=== PATIENT | male | born 1970 | race Caucasian/White ===

== ENCOUNTER 2016-06-13 18:33 | Emergency (ER) | payer MEDICAID ==
[2016-06-13 20:39] LABS: BASOPHILS 0.7 % (0.0-2.0); HEMATOCRIT 43.9 % (42.0-54.0); HEMOGLOBIN 14.5 g/dL (13.5-17.5); IMMATURE GRANULOCYTES 0.1 % (0-5); LYMPHOCYTES 32.9 % (15-50); MCV 90.9 fL (80.0-100.0); MEAN PLATELET VOLUME 9.2 fL (7.4-10.4); MONOCYTES 8.8 % (2-11); NEUTROPHILS 54.5 % (40-80); PLATELET COUNT 256 10x3/uL (130-400); RBC 4.83 10x6/uL (4.20-6.10); RDW 13.7 % (11.5-14.5); WBC 8.4 10x3/uL (4.8-10.8)
[2016-06-13 20:54] LABS: ANION GAP 9.3 mmol/L (8-16); BILIRUBIN - TOTAL 1.06 mg/dL (0.2-1.3); CALCIUM 8.9 mg/dL (8.5-10.1); CARBON DIOXIDE 31.4 mmol/L (21.0-32.0); CREATININE - SERUM 1.2 mg/dL (0.6-1.3); POTASSIUM - SERUM 3.7 mmol/L (3.5-5.1)
== END 2016-06-14 02:33 | disposition home or self-care (01) ==
LOC: D.ER 18:33
PROVIDERS: Emergency Medicine
DX: I10 Essential (primary) hypertension (principal); F20.0 Paranoid schizophrenia